=== PATIENT | female | born 1960 | race Caucasian/White ===

== ENCOUNTER 2023-12-12 06:23 | Emergency (ER) | payer OTHER ==
[2023-12-12] MEDS ORDERED: Morphine 4 MG/ML Syringe IVPUSH PRN (06:42)
[2023-12-12] MEDS ORDERED: Sodium Chloride 0.9% 10 ML Syringe FLUSH PRN (06:42)
[2023-12-12 06:50] LABS: BASOPHILS ABSOLUTE AUTO 0.05 K/uL (0.00-0.10); BASOPHILS PERCENT AUTO 0.4 % (0.1-1.3); EOSINOPHILS ABSOLUTE AUTO 0.05 K/uL (0.00-0.40); EOSINOPHILS PERCENT AUTO 0.4 % (0.0-5.4); HEMATOCRIT 39.5 % (34.3-46.0); HEMOGLOBIN 13.2 g/dL (11.2-15.5); IMMATURE GRAN ABSOLUTE AUTO 0.06 K/uL (0.00-0.23); IMMATURE GRAN PERCENT AUTO 0.5 % (0.0-0.7); LYMPHOCYTES ABSOLUTE AUTO 2.36 K/uL (0.8-3.3); LYMPHOCYTES PERCENT AUTO 19.5 % (11.4-47.7); MEAN CORPUSCULAR HEMOGLOBIN 28.7 pg (31.6-35.5); MEAN CORPUSCULAR HGB CONC 33.4 g/dL (31.6-35.5); MEAN CORPUSCULAR VOLUME 85.9 fL (81.4-99.0); MONOCYTES ABSOLUTE AUTO 0.91 K/uL (0.20-0.90); MONOCYTES PERCENT AUTO 7.5 % (3.3-12.6); NEUTROPHILS ABSOLUTE AUTO 8.68 K/uL (1.0-7.6); NEUTROPHILS PERCENT AUTO 71.7 % (40.0-78.1); PLATELET COUNT,PLT 379 K/uL (130-375); WHITE BLOOD CELL COUNT,WBC 12.1 K/uL (3.2-11.0)
[2023-12-12] MEDS: Aspirin 81 MG Tab.Chew PO ONE (06:51)
[2023-12-12] MEDS: Nitroglycerin 0.4 MG Tab.SL SL PRN (06:52)
[2023-12-12 07:08] LABS: A/G RATIO 0.8 (1.2-2.2); ALANINE AMINOTRANSFERASE,ALT 46 U/L (12-78); ALBUMIN 3.5 g/dL (3.4-5.0); ALKALINE PHOSPHATASE 134 U/L (46-116); ANION GAP 14.7 mmol/L (5.0-14.0); ASPARTATE AMNIOTRANSFERASE,AST 28 U/L (15-37); BILIRUBIN TOTAL 0.5 mg/dL (0.2-1.0); BLOOD UREA NITROGEN,BUN 21 mg/dL (7-18); CARBON DIOXIDE,CO2 28 mmol/L (21-32); CHLORIDE,CL 96 mmol/L (100-108); EST CRCL DRUG DOSING (CG) 51.14 mL/min; ESTIMATED GFR 63 mL/min (>60); GLUCOSE RANDOM 263 mg/dL (74-106); POTASSIUM,K 3.7 mmol/L (3.6-5.2); PRO B-TYPE NATRIUR PEPT,BNPPRO 121 pg/mL (5-125); PROTEIN TOTAL,TP 7.9 g/dL (6.4-8.2); SODIUM,NA 135 mmol/L (140-148); TROPONIN I HIGH SENSITIVITY 16.1 pg/mL (<=60.3)
[2023-12-12] MEDS: Alum Hydrox/Mag Hydrox/Simeth 15 ML, Lidocaine 2% 15 ML PO ONE (07:17)
[2023-12-12 07:48] LABS: INFLUENZA A NAA NEGATIVE (NEGATIVE); INFLUENZA B NAA NEGATIVE (NEGATIVE); RESPIRATORY SYNCYTIAL VIR NAA NEGATIVE (NEGATIVE)
[2023-12-12 07:51] LABS: CORONAVIRUS COVID-19 NAA POSITIVE (NEGATIVE)
[2023-12-12] MEDS: Sodium Chloride 0.9% 100 ML IV ONE ×2 (08:51→09:47)
[2023-12-12] MEDS: Sodium Chloride 0.9% 10 ML Syringe FLUSH ONE ×2 (08:51→09:47)
[2023-12-12] MEDS: Iopamidol 612 MG/ML 100 ML Bottle IV ONE ×2 (08:51→09:47)
[2023-12-12] MEDS: Heparin Sodium 5,000 Units/ML Vial IVPUSH ONE (11:28)
[2023-12-12] MEDS: Heparin Sodium/D5W 25,000 UNITS/500 ML BAG IV SCH (11:28)
[2023-12-12 11:36] LABS: INR 1.1; PROTHROMBIN TIME 10.7 sec (9.2-10.6); PTT,PARTIAL THROMBOPLSTIN TIME 24.6 sec (21.8-27.3)
== END 2023-12-12 12:34 ==
LOC: JP.ED 06:23
DX: I31.39 Other pericardial effusion (noninflammatory) (principal); R91.8 Other nonspecific abnormal finding of lung field; R59.0 Localized enlarged lymph nodes; I10 Essential (primary) hypertension; E78.00 Pure hypercholesterolemia, unspecified; F17.200 Nicotine dependence, unspecified, uncomplicated; E11.9 Type 2 diabetes mellitus without complications; Z79.84 Long term (current) use of oral hypoglycemic drugs; Z79.899 Other long term (current) drug therapy; Z79.82 Long term (current) use of aspirin; Z88.1 Allergy status to other antibiotic agents
CPT/HCPCS: 0241U; 36415; 71045; 71260; 74177; 80053; 80307; 83605; 83880; 84484; 85025; 85379; 85610; 85730; 93005; 96365; 99285; A9270; J1644; J3490; Q9967; 93010